=== PATIENT | male | born 1960 | race Caucasian/White ===

== ENCOUNTER → 2024-07-01 | Outpatient (CLI) | payer BC ==
[2024-07-01 07:26] LABS: African American GFR (CKD) >90 (>60 ml/min/1.73 sqM); Blood Urea Nitrogen 21 mg/dL (9-20); Non-African American GFR(CKD) >90 (>60 ml/min/1.73 sqM)
--- NOTE | 2024-07-01 08:29 | CT ---
EXAMINATION TYPE: CT angio chest DATE OF EXAM: 07/01/2024 8:03 AM COMPARISON: HISTORY: aneurysm CT DLP: 877.6 mGycm Automated exposure control for dose reduction was used. CONTRAST: CTA scan of the thorax is performed with IV Contrast, patient injected with 100 mL of Isovue 370, pul monary embolism protocol. . FINDINGS: LUNGS: The lungs are grossly clear, there is no concerning parenchymal mass or nodule identified. T here is no pleural effusion or pneumothorax seen. The tracheobronchial tree is patent. Subsegmental basilar atelectasis. MEDIASTINUM: There is satisfactory enhancement of the pulmonary artery and its branches, there is no CT evidence for pulmonary embolism. There is borderline mediastinal and hilar lymphadenopathy is nons pecific, possibly reactive. Small pericardial effusion is seen. Coronary artery calcification. Aorta: The aorta is of normal course and caliber with a maximal dimension of 3.4 cm. Mild atheroscler otic changes. OTHER: Hypertrophic and degenerative changes in the spine. Tiny hiatal hernia. IMPRESSION: 1. No evidence of aortic aneurysm. 2. Small pericardial effusion. 3. Moderate coronary artery calcifications. [facility], , 07/01/2024 8:27 AM
== END | disposition home or self-care (01) ==
LOC: RADCTMAIN 06:54
PROVIDERS: ATTEND Internal Medicine Interventional Cardiology
DX: I71.40 Abdominal aortic aneurysm, without rupture, unspecified
CPT/HCPCS: 36415; 71275; 82565; 84520

== ENCOUNTER 2025-03-23 05:43 | Day surgery (SDC) | payer BC ==
[2025-03-19 16:38] VITALS: BMI 32.8
[2025-03-23] MEDS ORDERED: ALPRAZolam 0.25 MG TAB PO PRN (06:00)
[2025-03-23] MEDS ORDERED: ALPRAZolam 0.5 MG TAB PO PRN (06:00)
[2025-03-23] MEDS ORDERED: HEPARIN SODIUM,PORCINE 10,000 UNIT in SODIUM CHLORIDE 0.9% 1,000 ML IRRIGATION PRN (06:00)
[2025-03-23] MEDS ORDERED: NITROGLYCERIN SL TABS 0.4 MG TAB SUBLINGUAL PRN ×2 (06:00→08:47)
[2025-03-23] MEDS ORDERED: HEPARIN SODIUM,PORCINE (1 ML) 2,500 UNIT in SODIUM CHLORIDE 0.9% 250 ML IRRIGATION PRN (06:00)
[2025-03-23] MEDS: ASPIRIN 325 MG TAB PO STA (07:01)
[2025-03-23] MEDS: ATORVASTATIN 80 MG TAB PO STA (07:02)
[2025-03-23] MEDS: IV FLUID CONTINUATION 1,000 ML IV ONE (07:03)
[2025-03-23] MEDS: SODIUM CHLORIDE 0.9% 1,000 ML in EMPTY BAG 1 BAG IV SCH ×2 (07:03→16:59)
[2025-03-23 07:54] LABS: Basophils # (A) 0.03 10*3/uL (0.00-0.10); Basophils % (A) 0.4 %; Eosinophils # (A) 0.16 10*3/uL (0.04-0.35); Eosinophils % (A) 2.1 %; HCT 43.4 % (39.6-50.0); HGB 14.6 g/dL (13.0-17.0); Lymphocytes # (A) 1.39 10*3/uL (0.90-5.00); Lymphocytes % (A) 18.2 %; MCH 29.2 pg (27.0-32.0); MCHC 33.6 g/dL (32.0-37.0); MCV 86.8 fL (80.0-97.0); Mean Platelet Volume 10.3 fL (9.5-12.2); Monocytes # (A) 0.55 10*3/uL (0.20-1.00); Monocytes % (A) 7.2 %; Neutrophils # (A) 5.46 10*3/uL (1.80-7.70); Neutrophils % (A) 71.7 %; Platelet Count 176 10*3/uL (140-440); RDW 14.4 % (11.5-14.5); WBC 7.62 10*3/uL (4.50-10.00)
[2025-03-23] MEDS: MIDAZOLAM 2 MG/2 ML VIAL IVP ONE ×4 (07:56→08:22)
[2025-03-23] MEDS: fentaNYL (PF) 50 MCG/1 ML VIAL IVP ONE ×3 (07:56→08:20)
[2025-03-23] MEDS: LIDOCAINE 1% INJ 10MG/ML (20 ML MDV) SQ ONE (07:56)
[2025-03-23] MEDS: VERAPAMIL 2.5 MG/ML 4 ML VIAL INTRAARTER ONE (07:58)
[2025-03-23] MEDS: HEPARIN SODIUM 1,000 UN/ML (10ML VL) IVP ONE ×2 (07:58→08:55)
[2025-03-23 08:01] LABS: African American GFR (CKD) >90 (>60 ml/min/1.73 sqM); Anion Gap 11 mmol/L; Blood Urea Nitrogen 22 mg/dL (9-20); Calcium 9.8 mg/dL (8.4-10.2); Carbon Dioxide 24 mmol/L (22-30); Chloride 103 mmol/L (98-107); Glucose 363 mg/dL (74-99); Non-African American GFR(CKD) 87 (>60 ml/min/1.73 sqM); Sodium 138 mmol/L (137-145)
[2025-03-23] MEDS: PRASUGREL 10 MG TAB PO ONE (08:10)
[2025-03-23 08:15] LABS: Potassium 4.6 mmol/L (3.5-5.1)
[2025-03-23] MEDS: NITROGLYCERIN 1000MCG/10ML SYRINGE INTRACORON ONE ×2 (08:29→08:38)
[2025-03-23] MEDS: IOPAMIDOL-370 100ML BTL INTRATHECA ONE (08:42)
[2025-03-23] MEDS: niCARdipine Syringe (1,000 mcg/10 mL) INTRACORON ONE (08:42)
[2025-03-23] MEDS: HEPARIN SODIUM,PORCINE 10,000 UNIT in SODIUM CHLORIDE 0.9% 1,000 ML IRRIGATION ONE (08:45)
[2025-03-23] MEDS: HEPARIN SODIUM,PORCINE (1 ML) 2,500 UNIT in SODIUM CHLORIDE 0.9% 250 ML IRRIGATION ONE (08:46)
[2025-03-23] MEDS ORDERED: traZODone HCL 50 MG TAB PO PRN (08:46)
[2025-03-23] MEDS ORDERED: ZOLPIDEM 5 MG TAB PO PRN (08:47)
[2025-03-23] MEDS ORDERED: MAG HYDROX/AL HYDROX/SIMETH 30 ML CUP PO PRN (08:47)
[2025-03-23] MEDS ORDERED: RX INFO: IV CONTRAST WAS GIVEN 1 EACH MISC MISCELLANE PRN (08:47)
[2025-03-23] MEDS ORDERED: ATROPINE SULFATE 0.1 MG/ML 10ML SYRINGE IV PRN (08:47)
--- NOTE | 2025-03-23 08:51 | P.PCN ---
Date of Procedure: 03/23/25 Operative Findings: CARDIAC CATHETERIZATION AND PERCUTANEOUS CORONARY INTERVENTION PERFORMING PHYSICIAN: Ricardo Gutiérrez MD, [facility] [place] PROCEDURE PERFORMED: 1. Selective right and left coronary angiogram and left heart catheterization 2. Successful stenting of mid RCA using 4.5 x 28 mm Xience LINO with an excel lent angiographic results 3. Adjunctive use of IVUS and IFR 4. Ultrasound-guided access of the right radial artery INDICATION: Symptomatic 65-year-old gentleman with abnormal stress test COMPLICATION: None APPROACH: Right radial artery LEVEL OF SEDATION: Moderate with the sedation time off 45 minutes PROCEDURE DESCRIPTION: After obtaining informed consent the patient was brought to the cardiac Entry Clerk with right radial artery was cannulated using micropuncture technique under ultrasound guidance a micropuncture wire passed easily then I placed a 6 Uzbek 11 cm sheath at the right radial artery and give the patient 2 mg of verapamil intra-arterial and 5000's of heparin intravenous. Selective right and left coronary angiogram performed using JR4 and JL 3.5 catheters. Left heart ca theterization was performed using the JR4 catheter. After that I decided to do an IFR of the RCA. After zeroing the Dobler wire and equalized in between the Dobler wire and guiding catheter the RCA was engaged and subsequently wired with IFR of 0.88. IVUS was performed of course after anticoagulation continued using heparin with ACT monitoring and showed a diameter around 4.5 mm. Predilatation was performed using 3.5 mm NC balloon and subsequently 4 mm shockwave balloon before I deployed 4.5 x 28 mm stent which was postdilated using 4.5 mm with final angiogram showing excellent angiographic results and the procedure was completed with no complication SELECTIVE CORONARY ANGIOGRAM: The right coronary artery: Large caliber vessel and a dominant vessel with severe disease involving the mi dportion which is calcified Left main: Has mild disease all The left circumflex: Large caliber vessel nondominant vessel with no evidence of high-grade stenosis The left anterior descending artery: Large caliber vessel with intermediate focal lesion involving the mid part HEMODYNAMICS: The LVEDP was 12 mmHg with no significant gradient across aortic valve CONCLUSION: 1. Severe disease involving the mid RCA. I did perform successful PCI of the RCA 2. Intermediate disease involving the LAD 3. Normal left-sided filling pressure POSTPROCEDURE MANAGEMENT: 1. Dual antiplatelet therapy using aspirin and Effient for 6 month 2. Aggressive cholesterol control 3. Follow-up with the patient
[2025-03-23 09:02] LABS: Glucose,Whole Blood 301 mg/dL (70-110)
[2025-03-23] MEDS: INSULIN LISPRO (HumaLOG) 100 UNIT/ML 10 mL VL SQ ONE (10:36)
[2025-03-23] MEDS: CHOLECALCIFEROL 25 MCG (1000 IU) TABLET PO SCH (16:59)
[2025-03-23 17:47] LABS: Glucose,Whole Blood 239 mg/dL (70-110)
[2025-03-23] MEDS: PROPRANOLOL LA 60 MG CAP.SA.24H PO SCH (18:26)
[2025-03-23] MEDS: lisinopriL 20 MG TAB PO SCH (18:27)
[2025-03-23] MEDS: glipiZIDE 5 MG TAB PO SCH (18:28)
[2025-03-23] MEDS: PANTOPRAZOLE 40 MG TABLET PO SCH (18:29)
[2025-03-23] MEDS: DAPAGLIFLOZIN PROPANEDIOL 10 MG TABLET PO SCH (18:29)
[2025-03-23] MEDS: PIOGLITAZONE 30 MG TAB PO SCH (18:29)
[2025-03-23] MEDS: hydroCHLOROthiazide 25 MG TAB PO SCH (18:29)
[2025-03-23 19:20] LABS: Glucose,Whole Blood 263 mg/dL (70-110)
[2025-03-23] MEDS: VITAMIN B COMPLEX PO SCH (19:44)
[2025-03-23] MEDS: ATORVASTATIN 40 MG TAB PO SCH (20:52)
[2025-03-23] MEDS: MAGNESIUM OXIDE 400 MG TAB PO SCH (20:53)
[2025-03-24 06:05] LABS: Glucose,Whole Blood 149 mg/dL (70-110)
[2025-03-24 06:23] LABS: African American GFR (CKD) >90 (>60 ml/min/1.73 sqM); Non-African American GFR(CKD) >90 (>60 ml/min/1.73 sqM)
[2025-03-24 07:27] VITALS: BP 127/68; PULSE 51; RESP 16; TEMP 97.6
[2025-03-24] MEDS: ASPIRIN 81 MG PO SCH (08:32)
[2025-03-24] MEDS: PRASUGREL 10 MG TAB PO SCH (08:33)
--- NOTE | 2025-03-24 08:44 | P.DS ---
Providers Attending physician: Ricardo Gutiérrez Consults: 03/23/25 08:47 Consult Physician Routine Consulting Provider: [facility] Consult Reason/Comments: Post Interventional patient Do you want consulting provider notified?: Already Contacted Primary care physician: Physician Nonsta Hospital Course: The patient is a pleasant 65-year-old gentleman who underwent yesterday PCI of the RCA. He was seen and evaluated this morning. He is asymptomatic and hemodynamically stable. The patient is going to be discharged home on dual antiplatelet therapy and I will follow-up with the patient next week in the office Plan - Discharge Summary Discharge Rx Participant: No New Discharge Prescriptions: New Prasugrel [Effient] 10 mg PO DAILY #90 tab Continue hydroCHLOROthiazide 25 mg PO DAILY glipiZIDE 10 mg PO BID Propranolol HCl [Propranolol HCl ER] 120 mg PO DAILY Magnesium Oxide [Magnesium] 500 mg PO HS Empagliflozin [Jardiance] 25 mg PO DAILY Unk Vitamin B Complex 1 tab PO DAILY traZODone HCL [Desyrel] 50 mg PO HS PRN PRN Reason: Insomnia lisinopriL 40 mg PO DAILY Pioglitazone [Actos] 30 mg PO DAILY Omeprazole 20 mg PO DAILY Cholecalciferol [Vitamin D3 (25 Mcg = 1000 Iu)] 25 mcg PO DAILY Atorvastatin [Lipitor] 40 mg PO HS Aspirin EC [Ecotrin Low Dose] 81 mg PO DAILY Discontinued metFORMIN HCL [Metformin HCl] 1,000 mg PO BID Discharge Medication List Aspirin EC [Ecotrin Low Dose] 81 mg PO DAILY 03/19/25 [History] Atorvastatin [Lipitor] 40 mg PO HS 03/19/25 [History] Cholecalciferol [Vitamin D3 (25 Mcg = 1000 Iu)] 25 mcg PO DAILY 03/19/25 [History] Empagliflozin [Jardiance] 25 mg PO DAILY 03/19/25 [History] Magnesium Oxide [Magnesium] 500 mg PO HS 03/19/25 [History] Omeprazole 20 mg PO DAILY 03/19/25 [History] Pioglitazone [Actos] 30 mg PO DAILY 03/19/25 [History] Propranolol HCl [Propranolol HCl ER] 120 mg PO DAILY 03/19/25 [History] Unk Vitamin B Complex 1 tab PO DAILY 03/19/25 [History] glipiZIDE 10 mg PO BID 03/19/25 [History] hydroCHLOROthiazide 25 mg PO DAILY 03/19/25 [History] lisinopriL 40 mg PO DAILY 03/19/25 [History] traZODone HCL [Desyrel] 50 mg PO HS PRN 03/19/25 [History] Prasugrel [Effient] 10 mg PO DAILY #90 tab 03/24/25 [Rx] Follow up Appointment(s)/Referral(s): Ricardo Gutiérrez MD [STAFF PHYSICIAN] - 03/30/25 10:00 am (FOLLOW UP APPOINTMENT IS MADE. ) Patient Instructions/Handouts: Moderate Sedation (DC), After Radial Heart Catheterization (GEN), Left Heart Catheterization (GEN) Activity/Diet/Wound Care/Special Instructions: Follow up Fall risk/safety precautions Encourage fluids x2 days No changes with home medications No flexing/bending/pushing/pulling/lifting greater than 5 pounds x5 days No driving x2 days No submersion of right wrist in pools/hot tubs/bath tubs/dish water x3 days
== END 2025-03-24 09:17 | disposition home or self-care (01) ==
LOC: CATHCVL 05:43 → 6NMEDSUR 13:52 → CATHCVL 03-24 09:17
PROVIDERS: ATTEND Internal Medicine Interventional Cardiology
DX: R94.39 Abnormal result of other cardiovascular function study (principal); R25.1 Tremor, unspecified; I10 Essential (primary) hypertension; E78.5 Hyperlipidemia, unspecified; E11.9 Type 2 diabetes mellitus without complications; E66.3 Overweight; Z82.49 Family history of ischemic heart disease and other diseases of the circulatory system; Z95.5 Presence of coronary angioplasty implant and graft; Z68.32 Body mass index [BMI] 32.0-32.9, adult; Z79.02 Long term (current) use of antithrombotics/antiplatelets; Z79.84 Long term (current) use of oral hypoglycemic drugs; Z79.82 Long term (current) use of aspirin; Z79.899 Other long term (current) drug therapy
CPT/HCPCS: 99152; 99153; 93005; 92978; 93458; 93799; 92972; 80048; 82565; 85025; C9600; C1887 ×2; C1769 ×2; C1894; C1874; C1725 ×2; C1761; C1753; J2250; J1644 ×3; J2003; Q9967; J3010; J2305

== ENCOUNTER 2025-04-21 09:37 | Day surgery (SDC) | payer BC ==
[2025-04-17 10:22] VITALS: BMI 32.8
[~2025-04-21 09:37] MED LIST: ALPRAZolam 0.25 MG TAB PO PRN; ALPRAZolam 0.5 MG TAB PO PRN; NITROGLYCERIN SL TABS 0.4 MG TAB SUBLINGUAL PRN
[2025-04-21] MEDS: SODIUM CHLORIDE 0.9% 1,000 ML in EMPTY BAG 1 BAG IV SCH ×2 (09:59→14:15)
[2025-04-21] MEDS: IV FLUID CONTINUATION 1,000 ML IV ONE (10:00)
[2025-04-21] MEDS: ASPIRIN 325 MG TAB PO STA (10:00)
[2025-04-21 10:07] LABS: Glucose,Whole Blood 256 mg/dL (70-110)
[2025-04-21] MEDS: HEPARIN SODIUM,PORCINE 10,000 UNIT in SODIUM CHLORIDE 0.9% 1,000 ML IRRIGATION PRN (12:09)
[2025-04-21] MEDS: HEPARIN SODIUM,PORCINE (1 ML) 2,500 UNIT in SODIUM CHLORIDE 0.9% 250 ML IRRIGATION PRN (12:10)
[2025-04-21] MEDS: fentaNYL (PF) 50 MCG/1 ML VIAL IVP ONE (12:11)
[2025-04-21] MEDS: MIDAZOLAM 2 MG/2 ML VIAL IVP ONE (12:11)
[2025-04-21] MEDS: LIDOCAINE 1% INJ 10MG/ML (20 ML MDV) SQ ONE (12:13)
[2025-04-21] MEDS: VERAPAMIL SYRINGE (5 MG/10 ML) INTRAARTER ONE (12:15)
[2025-04-21] MEDS: HEPARIN SODIUM 1,000 UN/ML (10ML VL) IVP ONE (12:17)
[2025-04-21] MEDS: NITROGLYCERIN 1000MCG/10ML SYRINGE INTRAARTER ONE (12:31)
[2025-04-21] MEDS: PRASUGREL 10 MG TAB PO ONE (12:35)
[2025-04-21] MEDS: IOPAMIDOL-370 100ML BTL INJ ONE (12:54)
[2025-04-21] MEDS ORDERED: ATROPINE SULFATE 0.1 MG/ML 10ML SYRINGE IV PRN (12:54)
[2025-04-21] MEDS ORDERED: MAG HYDROX/AL HYDROX/SIMETH 30 ML CUP PO PRN (12:54)
[2025-04-21] MEDS ORDERED: NITROGLYCERIN SL TABS 0.4 MG TAB SUBLINGUAL PRN (12:54)
[2025-04-21] MEDS ORDERED: ZOLPIDEM 5 MG TAB PO PRN (12:54)
[2025-04-21] MEDS ORDERED: RX INFO: IV CONTRAST WAS GIVEN 1 EACH MISC MISCELLANE PRN (12:54)
--- NOTE | 2025-04-21 12:59 | P.PCN ---
Date of Procedure: 04/21/25 Operative Findings: Percutaneous coronary intervention PERFORMING PHYSICIAN: Ricardo Gutiérrez MD, [facility] PROCEDURE PERFORMED: 1. Successful stenting of mid LAD using 3.0 x 23 mm Xience LINO with an excellent angiographic results 3. Adjunctive use of IVUS and IFR 4. Ultrasound-guided access of the right radial artery INDICATION: Symptomatic 65-year-old gentleman with known to have intermediate disease involving the LAD COMPLICATION: None APPROACH: Right radial artery LEVEL OF SEDATION: Moderate with the sedation time off 42 minutes PROCEDURE DESCRIPTION: After obtaining informed consent the patient was brought to the cardiac Road Grader Operator. The right radial artery was cannulated using micropuncture technique under ultrasound guidance the micropuncture wire passed easily then I placed a 6 [place] 11 cm sheath at the right radial artery and gave the patient 2 mg of verapamil intra-arterial and 5000's of heparin intravenous with continuous ACT monitoring. Subsequently I decided to pursue an IFR of the LAD which was the patient scheduled for. After zeroing the Dobler wire and equalized in between the Dobler wire and guiding catheter the left main was engaged and subsequently the LAD was wired. The IFR came into ischemic of 0.88. I decided to intervene on it. IVUS was performed and showed a diameter around 3 mm. I deployed 3.0 x 23 mm stent which was initially postdilated using 3.5 mm NC balloon and then 3.75 mm NC balloon. Final IVUS and angiogram showed good results. The procedur e was completed with no complication. POSTPROCEDURE MANAGEMENT: 1. Dual antiplatelet therapy using aspirin and Effient for 12 month 2. Aggressive cholesterol control 3. Follow-up with the patient
[2025-04-21 13:14] LABS: Glucose,Whole Blood 150 mg/dL (70-110)
[2025-04-21 17:31] LABS: Glucose,Whole Blood 196 mg/dL (70-110)
[2025-04-21] MEDS: MAGNESIUM OXIDE 400 MG TAB PO SCH (20:02)
[2025-04-21] MEDS: glipiZIDE 5 MG TAB PO SCH (20:02)
[2025-04-21] MEDS: ATORVASTATIN 40 MG TAB PO SCH (20:02)
[2025-04-21 20:26] LABS: Glucose,Whole Blood 271 mg/dL (70-110)
[2025-04-22 05:42] LABS: African American GFR (CKD) >90 (>60 ml/min/1.73 sqM); Non-African American GFR(CKD) >90 (>60 ml/min/1.73 sqM)
[2025-04-22] MEDS: PANTOPRAZOLE 40 MG TABLET PO SCH (06:12)
[2025-04-22 07:59] VITALS: BP 166/79; PULSE 50; RESP 17; TEMP 97.7
[2025-04-22] MEDS: CHOLECALCIFEROL 25 MCG (1000 IU) TABLET PO SCH (08:08)
[2025-04-22] MEDS: DAPAGLIFLOZIN PROPANEDIOL 10 MG TABLET PO SCH (08:08)
[2025-04-22] MEDS: ASPIRIN 81 MG PO SCH (08:08)
[2025-04-22] MEDS: PIOGLITAZONE 30 MG TAB PO SCH (08:09)
[2025-04-22] MEDS: PROPRANOLOL LA 60 MG CAP.SA.24H PO SCH (08:09)
[2025-04-22] MEDS: PRASUGREL 10 MG TAB PO SCH (08:09)
[2025-04-22] MEDS: hydroCHLOROthiazide 25 MG TAB PO SCH (08:09)
[2025-04-22] MEDS ORDERED: PRASUGREL 10 MG TAB PO SCH (09:00)
[2025-04-22] MEDS ORDERED: VITAMIN B COMPLEX PO SCH (09:00)
--- NOTE | 2025-04-22 13:17 | P.DS ---
Providers Attending physician: Ricardo Gutiérrez Consults: 04/21/25 12:54 Consult Physician Routine Consulting Provider: [facility] Consult Reason/Comments: Post Interventional patient Do you want consulting provider notified?: Already Contacted Primary care physician: Aimee Roy MD Hospital Course: This is a 65-year-old male who underwent cardiac catheterization yesterday with Dr. Gutiérrez. Patient underwent stenting of the mid LAD. Patient is doing well postprocedure with no immediate complications noted. He denies chest pain or pressure. Denies shortness of breath. Right radial site soft with no hematoma noted. Patient deemed stable for discharge home today from a cardiac standpoint. Please see EMR for further hospital course details. Patient will be continued on aspirin and Effient for 12 months. Discharge diagnosis Coronary artery disease, status post stenting to the mid LAD Nurse practitioner note has been reviewed by physician. Signing provider agrees with the documented findings, assessment, and plan of care documented by DETECTIVE AND INTELLIGENCE ANALYST as a scribe. Plan - Discharge Summary Discharge Rx Participant: No New Discharge Prescriptions: Continue hydroCHLOROthiazide 25 mg PO DAILY glipiZIDE 10 mg PO BID Propranolol HCl [Propranolol HCl ER] 120 mg PO DAILY Magnesium Oxide [Magnesium] 500 mg PO HS Empagliflozin [Jardiance] 25 mg PO DAILY Unk Vitamin B Complex 1 tab PO DAILY Prasugrel [Effient] 10 mg PO DAILY #90 tab Amoxicillin 500 mg PO Q12HR traZODone HCL [Desyrel] 50 mg PO HS PRN PRN Reason: Insomnia lisinopriL 40 mg PO DAILY Pioglitazone [Actos] 30 mg PO DAILY Omeprazole 20 mg PO DAILY Cholecalciferol [Vitamin D3 (25 Mcg = 1000 Iu)] 25 mcg PO DAILY Atorvastatin [Lipitor] 40 mg PO HS Aspirin EC [Ecotrin Low Dose] 81 mg PO DAILY Discharge Medication List Aspirin EC [Ecotrin Low Dose] 81 mg PO DAILY 03/19/25 [History] Atorvastatin [Lipitor] 40 mg PO HS 03/19/25 [History] Cholecalciferol [Vitamin D3 (25 Mcg = 1000 Iu)] 25 mcg PO DAILY 03/19/25 [History] Empagliflozin [Jardiance] 25 mg PO DAILY 03/19/25 [History] Magnesium Oxide [Magnesium] 500 mg PO HS 03/19/25 [History] Omeprazole 20 mg PO DAILY 03/19/25 [History] Pioglitazone [Actos] 30 mg PO DAILY 03/19/25 [History] Propranolol HCl [Propranolol HCl ER] 120 mg PO DAILY 03/19/25 [History] Unk Vitamin B Complex 1 tab PO DAILY 03/19/25 [History] glipiZIDE 10 mg PO BID 03/19/25 [History] hydroCHLOROthiazide 25 mg PO DAILY 03/19/25 [History] lisinopriL 40 mg PO DAILY 03/19/25 [History] traZODone HCL [Desyrel] 50 mg PO HS PRN 03/19/25 [History] Prasugrel [Effient] 10 mg PO DAILY #90 tab 03/24/25 [Rx] Amoxicillin 500 mg PO Q12HR 04/17/25 [History] Follow up Appointment(s)/Referral(s): Ricardo Gutiérrez MD [STAFF PHYSICIAN] - 04/29/25 3:30 pm (FOLLOW UP APPOINTMENT MADE. ) Patient Instructions/Handouts: After Radial Heart Catheterization (GEN) Discharge Disposition: HOME SELF-CARE
== END 2025-04-22 11:14 | disposition home or self-care (01) ==
LOC: CATHCVL 09:37 → 6NMEDSUR 13:00 → CATHCVL 04-22 11:14
PROVIDERS: ATTEND Internal Medicine Interventional Cardiology
DX: I25.10 Atherosclerotic heart disease of native coronary artery without angina pectoris (principal); Z95.5 Presence of coronary angioplasty implant and graft; I10 Essential (primary) hypertension; E11.9 Type 2 diabetes mellitus without complications; E78.5 Hyperlipidemia, unspecified; I08.0 Rheumatic disorders of both mitral and aortic valves; R25.1 Tremor, unspecified; E66.3 Overweight; Z68.32 Body mass index [BMI] 32.0-32.9, adult; Z79.02 Long term (current) use of antithrombotics/antiplatelets; Z79.82 Long term (current) use of aspirin; Z79.84 Long term (current) use of oral hypoglycemic drugs; Z79.899 Other long term (current) drug therapy; Z82.49 Family history of ischemic heart disease and other diseases of the circulatory system
CPT/HCPCS: 82565; 92978; 93799